=== PATIENT | female | born 1945 | race Caucasian/White ===

== ENCOUNTER 2019-05-14 15:26 | Emergency (ER) | payer MEDICARE ==
[2019-05-14 15:40] VITALS: BP 140/67
--- NOTE | 2019-05-14 16:20 | UC ---
Complaint Female HPI - HPI Summary HPI Summary: 74 year old female, no h/o DM, h/o UTIs ~ annually, presents with increased urination, urgency, burning with urination x 2-3 days. no fever, chills, no back pain. treated well in past with macrobid, had hyophen at home which helps with symptoms. no other complaints. No h/o resistant bacteria h/o crohns with fisula x 2, since has had frequent UTIs - History Of Current Complaint Chief Complaint: UCGU Stated Complaint: UTI Time Seen by Provider: 05/14/19 15:39 Hx Obtained From: Patient ?: No Onset/Duration: Sudden Onset, Lasting Days, Still Present Timing: Constant Severity Initially: Moderate Severity Currently: Moderate Pain Intensity: 5 Pain Scale Used: 0-10 Numeric Character: Dull, Burning, Cramping Aggravating Factor(s): Urination Alleviating Factor(s): Meds Associated Signs And Symptoms: Negative: Fever, Back Pain, Vaginal Discharge - Allergies/Home Medications Allergies/Adverse Reactions: Allergies Allergy/AdvReac Type Severity Reaction Status Date / Time ciprofloxacin [From Cipro] Allergy See Comment Verified 05/14/19 15:41 clindamycin Allergy Diarrhea Verified 05/14/19 15:41 codeine Allergy Hallucinati Verified 05/14/19 15:41 ons Penicillins Allergy Swelling Verified 05/14/19 15:41 Sulfa (Sulfonamide Allergy Rash Verified 05/14/19 15:41 Antibiotics) PMH/Surg Hx/FS Hx/Imm Hx Previously Healthy: Yes - Surgical History Surgical History: Yes Surgery Procedure, Year, and Place: tonsillectomy. bartholin gland abscess, csection. wisdom teeth, anal fistulectomy. intestinal resection. 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 Negative: Hematuria Psychological: Positive: Negative Is Patient Immunocompromised?: No Physical Exam Triage Information Reviewed: Yes Appearance: Well-Appearing, No Pain Distress, Well-Nourished Vital Signs: Initial Vital Signs Temp 98.5 F 05/14/19 15:33 Pulse 94 05/14/19 15:33 Resp 18 05/14/19 15:33 BP 140/67 05/14/19 15:33 Pulse Ox 97 05/14/19 15:33 Vital Signs Reviewed: Yes Eyes: Positive: Conjunctiva Clear ENT: Positive: Hearing grossly normal Respiratory: Positive: No respiratory distress, No accessory muscle use Abdomen Description: Positive: Nontender, No Organomegaly, Soft. Negative: CVA Tenderness (R), CVA Tenderness (L), Distended, Guarding Musculoskeletal Exam: Normal Neurological Exam: Normal Psychological Exam: Normal Skin Exam: Normal Complaint Female Dx - Course Course Of Treatment: unable to run UA due to hyophen, cultures sent, will treat based on symptoms, macrobid x 10 days hyophen script sent, follow up with primary if no relief, go to ER with increased symptoms, fever, chills. increase fluid intake - Differential Dx/Diagnosis Differential Diagnosis/HQI/PQRI: Cervicitis, Sexually Transmitted Disease, Urinary Tract Infection Provider Diagnosis: UTI (urinary tract infection) Discharge - Sign-Out/Discharge Documenting (check all that apply): Patient Departure All imaging exams completed and their final reports reviewed: No Studies - Discharge Plan Condition: Good Disposition: HOME Prescriptions: Methenam/M.blue/Salicyl/Hyoscy [Hyophen Tablet] 1 each PO Q6HR PRN #20 tablet PRN Reason: bladder spasm Nitrofurantoin Monohyd/M-Cryst [Macrobid 100 mg Capsule] 100 mg PO BID #20 cap Patient Education Materials: Urinary Tract Infection in Women (ED) Referrals: Lorene Hernandez MD [Primary Care Provider] - Additional Instructions: - Increase water intake - Hyophen or tylenol as needed for symptoms - Go to ER with fever, chills, increased pain, flank pain, decreased urination - Antibiotics as directed for 10 days - Cultures will return in 2-3 days - Billing Disposition and Condition Condition: GOOD Disposition: Home - Attestation Statements Provider Attestation: I was available for consult. This patient was seen by the [facility]. The patient was not presented to, seen by, or examined by me. -Robinson
== END 2019-05-14 16:15 | disposition home or self-care (01) ==
LOC: UCEAST 15:26
DX: N39.0 Urinary tract infection, site not specified (principal); Z87.440 Personal history of urinary (tract) infections; Z88.5 Allergy status to narcotic agent; Z88.0 Allergy status to penicillin; Z88.2 Allergy status to sulfonamides
CPT/HCPCS: 87077; 87086; 87186; 99202; G0463

== ENCOUNTER 2019-10-09 14:48 | Emergency (ER) | payer MEDICARE ==
[2019-10-09 15:15] VITALS: BP 135/75
--- NOTE | 2019-10-09 15:39 | UC ---
Complaint Female HPI - HPI Summary HPI Summary: 2 DAYS OF URINARY FREQUENCY, URGENCY AND DYSURIA WITH LOWER ABDOMINAL PRESSURE. 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 STATES SHE GETS 1-2 UTI PER YEAR. SHE HAS A PRESCRIPTION FOR HYOPHEN WHICH SHE TAKES WHEN SHE DEVELOPS UTI SYMPTOMS SOMETIMES HER SYMPTOMS WILL RESOLVE WITH THIS MEDICATION AND AGGRESSIVE HYDRATION. NO FEVER, NAUSEA, BACK PAIN. - History Of Current Complaint Chief Complaint: UCGU Stated Complaint: POSS UTI Time Seen by Provider: 10/09/19 15:10 Hx Obtained From: Patient Onset/Duration: Gradual Onset, Lasting Days, Still Present Timing: Constant Severity Initially: Moderate Severity Currently: Moderate Pain Intensity: 5 Pain Scale Used: 0-10 Numeric Character: Burning Aggravating Factor(s): Urination Associated Signs And Symptoms: Negative: Fever, Back Pain, Nausea - Allergies/Home Medications Allergies/Adverse Reactions: Allergies Allergy/AdvReac Type Severity Reaction Status Date / Time ciprofloxacin [From Cipro] Allergy See Comment Verified 05/14/19 15:41 clindamycin Allergy Diarrhea Verified 05/14/19 15:41 codeine Allergy Hallucinati Verified 05/14/19 15:41 ons Penicillins Allergy Swelling Verified 05/14/19 15:41 Sulfa (Sulfonamide Allergy Rash Verified 05/14/19 15:41 Antibiotics) Home Medications: Home Medications Carboxymethylcellulos/Glycerin [Refresh Optive Eye Drops] 1 drop BOTH EYES Q1H PRN 10/09/19 [History Confirmed 10/09/19] Cyclosporine 0.05% OPHTH (NF) [Restasis 0.05% OPHTH] 1 drop BOTH EYES DAILY [History Confirmed 10/09/19] Diphenoxylat/Atrop 2.5-0.025M* [Lomotil TAB*] 1 tab PO Q6H PRN 10/09/19 [ History Confirmed 10/09/19] Eyelid Cleanser Combination 5 [Ocusoft Lid Scrub] 1 pad BOTH EYES DAILY [History Confirmed 10/09/19] PMH/Surg Hx/FS Hx/Imm Hx Endocrine History: Dyslipidemia Other GI/ History: CROHNS - Surgical History Surgical History: Yes Surgery Procedure, Year, and Place: tonsillectomy. bartholin gland abscess, csection. wisdom teeth, anal fistulectomy. intestinal resection. 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 - Family History Known Family History: Positive: Non-Contributory - Social History Alcohol Use: None Substance Use Type: None Smoking Status (MU): Never Smoked Tobacco Type: Cigarettes Amount Used/How Often: FOR ABOUT 3 YEARS Have You Smoked in the Last Year: No When Did the Patient Quit Smoking/Using Tobacco: EARLY 20'S (AGE) Review of Systems All Other Systems Reviewed And Are Negative: Yes Constitutional: Positive: Negative Respiratory: Positive: Negative Cardiovascular: Positive: Negative Gastrointestinal: Positive: Abdominal Pain Genitourinary: Positive: Dysuria, Frequency, Urgency Physical Exam Triage Information Reviewed: Yes Appearance: Well-Appearing, No Pain Distress, Well-Nourished Vital Signs: Initial Vital Signs Temp 98.2 F 10/09/19 15:10 Pulse 83 10/09/19 15:10 Resp 18 10/09/19 15:10 BP 135/75 10/09/19 15:10 Pulse Ox 96 10/09/19 15:10 Vital Signs Reviewed: Yes Eyes: Positive: Conjunctiva Clear ENT: Positive: Hearing grossly normal Neck: Positive: Supple Respiratory: Positive: No respiratory distress, No accessory muscle use Cardiovascular: Positive: Pulses Normal Abdomen Description: Positive: Other: - MILD SUPRAPUBIC TENDERNESS. Negative: CVA Tenderness (R), CVA Tenderness (L), Distended, Guarding Musculoskeletal: Positive: No Edema Neurological: Positive: Alert Psychological: Positive: Age Appropriate Behavior Skin: Negative: Rashes Complaint Female Dx - Course Course Of Treatment: PATIENT TOOK HYOPHEN PRIOR TO ARRIVAL SO URINE SPECIMEN IS BLUE AND UNABLE TO BE DIPPED HERE IN THE URGENT CARE. WE WILL SEND IT FOR CULTURE AND TREAT THE PATIENT EMPIRICALLY BASED ON HER HISTORY AND SYMPTOMS WITH MACROBID WHICH SHE STATES WORKS WELL FOR HER. LOOKING BACK ON HER PAST CULTURES SHE HAS BEEN POSITIVE FOR PANSENSITIVE E. COLI. - Differential Dx/Diagnosis Provider Diagnosis: UTI (urinary tract infection) Discharge ED - Sign-Out/Discharge Documenting (check all that apply): Patient Departure All imaging exams completed and their final reports reviewed: No Studies - Discharge Plan Condition: Stable Disposition: HOME Prescriptions: Nitrofurantoin Macrocrystal [Nitrofurantoin] 100 mg PO BID #14 capsule Patient Education Materials: Urinary Tract Infection in Women (ED) Referrals: Lorene Hernandez MD [Primary Care Provider] - If Needed Additional Instructions: WILL TREAT FOR UTI BASED ON YOUR SYMPTOMS AND HISTORY. URINE SAMPLE HAS BEEN SENT FOR CULTURE. WE WILL CALL YOU IF YOUR MEDICATION NEEDS TO BE CHANGED. STAY WELL HYDRATED. FOLLOW-UP WITH YOUR PCP IF YOUR SYMPTOMS DO NOT IMPROVE EXPECTED. - Billing Disposition and Condition Condition: STABLE Disposition: Home
== END 2019-10-09 15:50 | disposition home or self-care (01) ==
LOC: UCEAST 14:48
DX: N39.0 Urinary tract infection, site not specified (principal); K50.90 Crohn's disease, unspecified, without complications; Z88.1 Allergy status to other antibiotic agents; Z88.5 Allergy status to narcotic agent; Z88.0 Allergy status to penicillin; Z88.2 Allergy status to sulfonamides
CPT/HCPCS: 87077; 87086; 87186; 99212; G0463